=== PATIENT | female | born 1930 | race Caucasian/White ===

== ENCOUNTER → 2017-01-15 | Day surgery (SDC) | payer OTHER ==
[2016-12-26 14:08] VITALS: Ht 149.9 cm; Wt 62.1 kg
[~2017-01-15] VITALS: Ht 149.9 cm; Wt 62.1 kg
[~2017-01-15] MED LIST: ACET-1138 PO; ASCA500 PO; ASPI81TA28 PO; B-COTAB18 PO; BUTA1CAP17 PO; CALC500C70 PO; CHOL1000 PO; DIPH-437 PO; FERR325T51 PO; FSMD/70 PO; SIMV40TA2 PO
== END | disposition home or self-care (01) ==
LOC: C.PAT 11:44 → EDSTATUS 14:30
PROVIDERS: ATTEND Physical Medicine & Rehabilitation
DX: M46.1 Sacroiliitis, not elsewhere classified (principal)